=== PATIENT | male | born 1965 | race Caucasian/White ===

== ENCOUNTER 2020-09-30 21:19 | Observation (INO) | payer OTHER ==
[~2020-09-30] VITALS: Ht 162.6 cm; Wt 68.1 kg
[2020-09-30 21:45] LABS: BASOPHILS ABSOLUTE AUTO 0.07 K/mm3 (0.00-0.23); BASOPHILS PERCENT AUTO 0 % (0-2); EOSINOPHILS ABSOLUTE AUTO 0.02 K/mm3 (0.00-0.68); EOSINOPHILS PERCENT AUTO 0 % (0-6); Hematocrit 49.8 % (37.0-53.0); Hemoglobin 17.1 g/dL (13.5-17.5); IMMATURE GRAN ABSOLUTE AUTO 0.12 K/mm3 (0.00-0.10); IMMATURE GRAN PERCENT AUTO 1 % (0-1); LYMPHOCYTES PERCENT AUTO 7 % (21-46); MONOCYTES ABSOLUTE AUTO 1.19 K/mm3 (0.16-1.47); MONOCYTES PERCENT AUTO 6 % (4-13); Mean Corpuscular HGB 31.2 pg (26.0-34.0); Mean Corpuscular HGB Conc 34.3 g/dL (31.5-36.5); Mean Corpuscular Volume 91 fL (80-100); Mean Platelet Volume 9.1 fL (9.1-12.4); NEUTROPHILS ABSOLUTE AUTO 17.12 K/mm3 (1.96-9.15); NEUTROPHILS PERCENT AUTO 86 % (41-73); Platelet Count 325 K/mm3 (150-400); RDW Coefficient Variation 12.1 % (11.7-14.2); RDW Standard Deviation 40.5 fL (35.1-46.3); Red Blood Cell Count 5.48 M/mm3 (4.30-5.90); White Blood Cell Count 19.82 K/mm3 (4.00-11.30)
[2020-09-30 22:05] LABS: Alanine Aminotransfer (ALT/SGP 48 U/L (12-78); Albumin, Blood 4.9 g/dL (3.4-5.0); Albumin/Globulin Ratio 1.4 (0.8-1.8); Alk Phos 118 U/L (50-136); Anion Gap 6 mmol/L (6-16); Aspartate Aminotrans (AST/SGOT 23 U/L (12-37); Bilirubin, Total 0.6 mg/dL (0.1-1.0); Blood Urea Nitrogen 22 mg/dL (8-24); CO2, Blood 24 mmol/L (21-32); Calcium, Blood 9.1 mg/dL (8.5-10.1); Chloride, Blood 108 mmol/L (98-108); Globulin, Blood 3.5 g/dL (2.2-4.0); Glomerular Filtration Rate >60 (60-); Glucose, Blood 121 mg/dL (70-99); Sodium, Blood 138 mmol/L (136-145); Total Protein, Blood 8.4 g/dL (6.4-8.2); Troponin I <0.015 ng/mL (0.000-0.040)
[2020-09-30 23:58] LABS: Source, Urine Clean Catch
[2020-10-01] LABS: Bilirubin, Urine Neg (Neg); Blood, Urine 1+ (Neg); Glucose Qualitative, Urine Neg (Neg); Ketones, Urine Neg (Neg); Leukocyte Esterase, Urine Neg (Neg); Nitrite, Urine Neg (Neg); Protein, Urine 2+ (Neg); Specific Gravity, Urine 1.015 (1.003-1.022); Urobilinogen, Urine NORM (Normal)
[2020-10-01 00:06] LABS: Appearance, Urine Clear (Clear); Color, Urine Yellow (P-Yellow)
[2020-10-01 00:08] LABS: Bacteria Few /hpf; Mucus Light (0-Heavy); Red Blood Cells, Urine 0-2 /hpf (0-2); Spermatozoa Few /hpf; Squamous Epithelial Cells Few /hpf (Few)
[2020-10-01 03:06] LABS: Free Thyroxine 1.17 ng/dL (0.70-1.60); Thyroid Stimulating Hormone 0.352 uIU/mL (0.360-4.800); Troponin I <0.015 ng/mL (0.000-0.040)
[2020-10-01 09:26] LABS: Influenza A, PCR NEGATIVE (NEGATIVE); Influenza B, PCR NEGATIVE (NEGATIVE); Resp Syncytial Virus, PCR NEGATIVE (NEGATIVE); SARS-Cov-2 (COVID-19) PCR, MMC NEGATIVE (NEGATIVE)
--- NOTE | 2020-10-01 15:49 | NUR ---
TRANSFER FROM ED: PT ADMITTED FROM ED VIA STRETCHER AT 1500. ALERT AND ORIENTED X4. ON ROOM AIR SATING ABOVE 92%. TELE SHOWING SINUS RHYTHM WITH HR 87. DENIES ANY CHEST PAIN OR OTHER PAINS. VITAL SIGNS STABLE. WILL CONTINUE TO MONITOR BP. DENIES N/V OR ANY NUMBNESS/TINGLING. EDUCATED ON FALL PREVENTION AND SAFETY. CALL LIGHT PROVIDED. FOOD TRAY ORDERED. WILL CONTINUE TO MONITOR.
--- NOTE | 2020-10-01 18:46 | NUR ---
SHIFT SUMMARY: PT ALERT AND ORIENTED X4. ON ROOM AIR SATING ABOVE 92%. TELE SHOWING SINUS RHYTHM WITH HR 80-90'S. VITAL SIGNS STABLE WITH ELEVATED BP. SEE EMAR FOR HTN PRN MEDS. NS INFUSING AT 125 ML/HR. NO ACUTE CHANGES. PT DENIES CHEST PAIN/PRESSURE. DENIES N/V. WILL CONTINUE TO MONITOR AND REPORT OFF.
[2020-10-02 03:48] LABS: BASOPHILS ABSOLUTE AUTO 0.03 K/mm3 (0.00-0.23); BASOPHILS PERCENT AUTO 1 % (0-2); EOSINOPHILS ABSOLUTE AUTO 0.09 K/mm3 (0.00-0.68); EOSINOPHILS PERCENT AUTO 2 % (0-6); Hematocrit 42.2 % (37.0-53.0); Hemoglobin 14.2 g/dL (13.5-17.5); IMMATURE GRAN ABSOLUTE AUTO 0.04 K/mm3 (0.00-0.10); IMMATURE GRAN PERCENT AUTO 1 % (0-1); LYMPHOCYTES ABSOLUTE AUTO 2.34 K/mm3 (0.84-5.20); LYMPHOCYTES PERCENT AUTO 39 % (21-46); MONOCYTES PERCENT AUTO 8 % (4-13); Mean Corpuscular HGB Conc 33.6 g/dL (31.5-36.5); Mean Corpuscular Volume 92 fL (80-100); Mean Platelet Volume 9.3 fL (9.1-12.4); NEUTROPHILS ABSOLUTE AUTO 3.08 K/mm3 (1.96-9.15); NEUTROPHILS PERCENT AUTO 51 % (41-73); Platelet Count 236 K/mm3 (150-400); RDW Coefficient Variation 12.3 % (11.7-14.2); RDW Standard Deviation 41.5 fL (35.1-46.3); Red Blood Cell Count 4.58 M/mm3 (4.30-5.90); White Blood Cell Count 6.08 K/mm3 (4.00-11.30)
[2020-10-02 04:07] LABS: Troponin I <0.015 ng/mL (0.000-0.040)
[2020-10-02 04:09] LABS: Alanine Aminotransfer (ALT/SGP 33 U/L (12-78); Albumin, Blood 3.2 g/dL (3.4-5.0); Albumin/Globulin Ratio 1.1 (0.8-1.8); Alk Phos 86 U/L (50-136); Anion Gap 7 mmol/L (6-16); Aspartate Aminotrans (AST/SGOT 17 U/L (12-37); Bilirubin, Direct 0.1 mg/dL (0.0-0.3); Bilirubin, Indirect 0.6 mg/dL (0.1-0.7); Bilirubin, Total 0.7 mg/dL (0.1-1.0); Blood Urea Nitrogen 15 mg/dL (8-24); Bun/Creatinine Ratio 18.6 (12.0-20.0); CO2, Blood 26 mmol/L (21-32); Calcium, Blood 8.1 mg/dL (8.5-10.1); Chloride, Blood 109 mmol/L (98-108); Creatinine, Blood 0.81 mg/dL (0.60-1.20); Glomerular Filtration Rate >60 (60-); Glucose, Blood 96 mg/dL (70-99); Potassium, Blood 4.4 mmol/L (3.5-5.5); Sodium, Blood 142 mmol/L (136-145)
[2020-10-02 04:20] LABS: Total Protein, Blood 6.2 g/dL (6.4-8.2)
--- NOTE | 2020-10-02 05:20 | NUR ---
SHIFT SUMMARY PT A&O X4, PLEASANT & COOPERATIVE. MONITOR SHOWS SR, HR 70's-80's. SPO2 > 92% ON RA. PT DENIES CP &/OR ANY OTHER PAIN/DISCOMFORT. BP ELEVATED, MEDICATING PER EMAR, OTHERWISE VSS. NS GTT INFUSING PER ORDERS.
[2020-10-02] MEDS ORDERED: ONDA4ODT MM (10:27)
[2020-10-02] MEDS ORDERED: Lisinopril-Hct1 EAC4 PO (10:28)
--- NOTE | 2020-10-02 10:48 | NUR ---
DISCHARGE SUMMARY PT A&Ox4; CALM AND COOPERATIVE WITH CARE. PT RESTING IN BED, IND IN ROOM. PT DENIES PAIN, CHEST PAIN, NAUSEA, DIZZINESS AND LIGHTHEADEDNESS. HTN NOTED; DISCUSSED WITH DR MAY, NEW ORDERS FOR PO MEDICATION THIS AM; GAGE MAKER CALLED TO CLARIFY PO ORDERS AND DISCHARGE ORDERS. OTHER VSS. NO OTHER ACUTE CHAGNES NOTED DURING SHIFT. PT EDUCATED ON DISCHARGE INSTRUCTIONS, FOLLOW UP APPOINTMENTS AND MEDICATIONS. PT EDUCATED ON NEW MEDICAITONS, CALLED IN MEDICATIONS TO [facility] [place], PER PT REQUEST, EDUCATED PT ON CHECKING WITH PCP OR PHARMACIST PRIOR TO TAKING OVER THE COUNTER MEDICATIONS. PT STATES HE HAS A PCP BUT COULDNT REMEMBER NAME, EDUCATED PT TO CALL AND FOLLOW UP WITH PCP ONCE HE GETS HOME. PT LEFT ROOM ON FOOT, DENYING THE NEED FOR WHEELCHAIR AT 1044. PT DRIVING SELF HOME VIA VEHICLE.
== END 2020-10-02 10:45 | disposition home or self-care (01) ==
LOC: ER 21:19 → ERHOLD 21:20 → PCU 10-01 14:53 → ENPENDDIS 10-02 08:51 → PCU 10-02 10:45
PROVIDERS: Family Medicine; Physician Assistant; Student in an Organized Health Care Education/Training Program; ADMIT Internal Medicine
DX: I16.0 Hypertensive urgency (principal); J44.9 Chronic obstructive pulmonary disease, unspecified; I10 Essential (primary) hypertension; F17.210 Nicotine dependence, cigarettes, uncomplicated; R10.9 Unspecified abdominal pain; R07.9 Chest pain, unspecified; D72.829 Elevated white blood cell count, unspecified; I82.90 Acute embolism and thrombosis of unspecified vein; N52.9 Male erectile dysfunction, unspecified; Z79.01 Long term (current) use of anticoagulants
CPT/HCPCS: 0241U; 36415; 71046; 74177; 80048; 80053; 80076; 81001; 82947; 83605; 84145; 84439; 84443; 84484; 85025; 93005; 93010; 96361; 96374; 96375; 96376; 99285-25; A9270; G0378; J1650; J2060; J7030; Q9967